=== PATIENT | female | born 1960 | race Caucasian/White ===

== ENCOUNTER → 2017-03-02 | Outpatient (CLI) | payer OTHER ==
[~2017-03-02] MED LIST: ADVAIR 500-501 EACH INH; ALDACTONE50 MG PO; ASPIR 8181 MG PO; CARAFATE 1 GM TA1 GM PO; CHLORTRIMETON PO; EFFEXOR XR150 MG PO; FISH OIL 1,001000 M2 PO; HYDROCODONE-APA1 TA1 PO; HYDROXYCHLOROQ200 M1 PO; INDERAL60 MG PO; IRON325 PO; MELATONIN3 MG PO; NORCO 5-325 TA1 EACH PO; NORVASC5 MG PO; PREDNISONE 5 MG5 M1 PO; PROTONIX40 M1 PO; SAVELLA100 MG PO; SAVELLA50 MG PO; SILVADENE20 GM TP; SINGULAIR 10 MG10 M1 PO; TIZANIDINE HCL4 M1 PO; TRAZODONE 150150 M1 PO; TYLENOL ARTHRI650 MG PO; UNICOMPLEX M TA1 TA1 PO; VALIUM5 MG PO; VENTOLIN HFA 1818 GM INH; VITAMIN E100 UNI1 PO; VITAMINC500 PO; ZYPREXA5 MG PO
== END ==
LOC: RAD 08:16 → ULTRA 13:59
DX: N63 Unspecified lump in breast (principal)

== ENCOUNTER → 2017-03-13 | Outpatient (CLI) | payer OTHER | END | disposition home or self-care (01) | LOC: ULTRA 13:08 | DX: L02.213 Cutaneous abscess of chest wall (principal); Z90.710 Acquired absence of both cervix and uterus; J45.909 Unspecified asthma, uncomplicated; I10 Essential (primary) hypertension; F32.9 Major depressive disorder, single episode, unspecified; F41.9 Anxiety disorder, unspecified; M06.9 Rheumatoid arthritis, unspecified; M79.7 Fibromyalgia; K21.9 Gastro-esophageal reflux disease without esophagitis; Z86.73 Personal history of transient ischemic attack (TIA), and cerebral infarction without residual deficits; Z85.3 Personal history of malignant neoplasm of breast; Z98.890 Other specified postprocedural states; Z87.891 Personal history of nicotine dependence ==

== ENCOUNTER → 2017-05-09 | Outpatient (CLI) | payer OTHER | LOC: RAD 10:40 | DX: N61.1 Abscess of the breast and nipple (principal) ==